=== PATIENT | female | born 1970 | race Caucasian/White ===

== ENCOUNTER 2016-06-12 00:12 | Inpatient (IN) | payer BC ==
[2016-06-12] VITALS (12 sets, daily range): BP systolic 102–135; BP diastolic 73–88; PULSE 58–88; TEMP 36.3–36.9; O2SAT 92–100; Ht 172.7 cm; Wt 66.4 kg
[~2016-06-12] VITALS: Ht 172.7 cm; Wt 66.4 kg
[~2016-06-12 00:12] MED LIST: CARI350T28 PO; RIZA10TA18 PO; [UNRECOGNIZED DRUG - CODE] PO
[2016-06-12] MEDS ORDERED: SODIUM CHLORIDE 0.9% 1000ML 1,000 ML IV STA (00:25)
[2016-06-12] MEDS ORDERED: SODIUM CHLORIDE 0.9% 1000ML 500 ML IV STA (00:25)
[2016-06-12] MEDS ORDERED: ONDANSETRON INJ 2 MG/ML 2 ML VIAL IV STA (00:25)
[2016-06-12] MEDS ORDERED: KETOROLAC TROMETHAMINE 30 MG/ML VIAL IV STA (00:25)
[2016-06-12] MEDS ORDERED: MoRPHine SULFATE 4 MG/ML 1 ML CARP\\VIAL IV PRN ×2 (00:30→03:45)
--- NOTE | 2016-06-12 00:34 | EMERGENCY ROOM VISIT NOTE ---
History Report prepared by Scribe: Kelly Alvarez Under the Supervision of: Dr. Tomas Cornell M.D. First contact with patient: 00:22 Chief Complaint: ABDOMINAL PAIN Stated Complaint: ABDOMINAL PAIN History of Present Illness The patient is a 45 year old female who presents to the Emergency Room with complaints of persistent abdominal pain that started about 5 hours prior to arrival. She rates her pain as a 7/10 and states the pain started approximately 15 minutes after she ate dinner this evening. She reports the pain feels similar to "gas pains" and she has experienced similar pain twice before in the past 2 weeks, both times having been shortly after eating. She tried taking Gas- X, Prilosec and Bentyl earlier this evening, but states they provided no relief. The patient denies any history of previous abdominal surgeries. She notes she has felt nauseous intermittently this evening and feels "hot and sweaty" here in the ED. She denies any recent vomiting or diarrhea. She admits to some increased urinary urgency in the past few weeks. She denies any recent fevers, sore throat or cough. Source of History: patient Onset: 5 hours [employer] SAL[employer] Position: abdomen Symptom Intensity: 7/10 Timing: other (persistent) Modifying Factors (Worsening): eating Modifying Factors (Relieving): other (Gas-X, Prilosec, Bentyl) Associated Symptoms: + nausea, + urinary symptoms, No cough, No diarrhea, No fevers, No sorethroat, No vomiting Review of Systems See HPI for pertinent positives & negatives. A total of 10 systems reviewed and were otherwise negative. Past Medical & Surgical Medical Problems: (1) GERD (gastroesophageal reflux disease) Social History Smoking Status: Never Smoker Smokeless Tobacco Use: No Alcohol Use: occasionally Drug Use: none Marital Status: Housing Status: lives with family Occupation Status: employed Current/Historical Medications No Active Prescriptions or Reported Meds Allergies Coded Allergies: Penicillins (Unverified Allergy, Mild, HIVES, 06/12/16) Tetracycline (Unverified Allergy, Mild, FLUID ON SPINAL COLUMN, 06/12/16) Physical Exam Vital Signs Date Time Temp Pulse Resp B/P Pulse Ox O2 Delivery O2 Flow Rate FiO2 06/12/16 03:30 78 20 126/73 98 Room Air 06/12/16 01:52 61 18 121/74 99 Room Air 06/12/16 00:19 36.7 86 18 122/87 99 Room Air Physical Exam GENERAL: Patient is in no acute distress. HEENT: No acute trauma, normocephalic atraumatic, mucous membranes moist, no nasal congestion, no scleral icterus. NECK: No stridor, no adenopathy, no meningismus, trachea is midline. LUNGS: Clear to auscultation bilaterally, no wheeze, no rhonchi, breath sounds equal. HEART: Without murmurs gallops or rubs, regular rate and rhythm. ABDOMEN: Soft, tender in right upper quadrant and epigastrium, bowel sounds positive, no hernias, no peritonitis. EXTREMITIES: No cyanosis or edema, full range of motion of all the joints without pain or difficulty, no signs for acute trauma. NEUROLOGIC: Oriented x 3, no acute motor or sensory deficits, no focal weakness. SKIN: No rash, no jaundice, no diaphoresis. Medical Decision & Procedures ER Provider Diagnostic Interpretation: This X-Ray was reviewed and interpreted by myself as we do not have a radiologist on staff overnight. CHEST X-RAY No pneumonia, free air or mediastinal widening seen on X-Ray. This Ultrasound was reviewed and interpreted by the radiologist and reviewed by myself. US RUQ: The liver measures upper limits of normal at 18.4 cm with slight increased echogenicity suggesting hepatic steatosis. Numerous gallstones with mild gallbladder wall thickening measuring up to 3.5 mm. Stones appear to be in the neck of the gallbladder. No pericholecystic fluid. Finding may represent early acute cholecystitis in the correct clinical setting. The common bile duct is prominent measuring up to 7 mm. Simple cyst noted within the right kidney measured 12 mm. Otherwise, the right kidney is unremarkable. Radiologist: Je Rodriguez MD Laboratory Results 06/12/16 00:35 Red Blood Count 4.59, Mean Corpuscular Volume 89.5, Mean Corpuscular Hemoglobin 31.8, Mean Corpuscular Hemoglobin Concent 35.5, Mean Platelet Volume 9.8, Neutrophils (%) (Auto) 71.1, Lymphocytes (%) (Auto) 18.9, Monocytes (%) (Auto) 8.4, Eosinophils (%) (Auto) 1.2, Basophils (%) (Auto) 0.3, Neutrophils # (Auto) 5.23, Lymphocytes # (Auto) 1.39, Monocytes # (Auto) 0.62, Eosinophils # (Auto) 0.09, Basophils # (Auto) 0.02 06/12/16 00:35 Test 06/12/16 00:35 06/12/16 01:50 White Blood Count 7.36 K/uL (4.8-10.8) Red Blood Count 4.59 M/uL (4.2-5.4) Hemoglobin 14.6 g/dL (12.0-16.0) Hematocrit 41.1 % (37-47) Mean Corpuscular Volume 89.5 fL (80-100) Mean Corpuscular Hemoglobin 31.8 pg (25-34) Mean Corpuscular Hemoglobin Concent 35.5 g/dl (32-36) Platelet Count 265 K/uL (130-400) Mean Platelet Volume 9.8 fL (7.4-10.4) Neutrophils (%) (Auto) 71.1 % Lymphocytes (%) (Auto) 18.9 % Monocytes (%) (Auto) 8.4 % Eosinophils (%) (Auto) 1.2 % Basophils (%) (Auto) 0.3 % Neutrophils # (Auto) 5.23 K/uL (1.4-6.5) Lymphocytes # (Auto) 1.39 K/uL (1.2-3.4) Monocytes # (Auto) 0.62 K/uL (0.11-0.59) Eosinophils # (Auto) 0.09 K/uL (0-0.5) Basophils # (Auto) 0.02 K/uL (0-0.2) RDW Standard Deviation 41.1 fL (36.4-46.3) RDW Coefficient of Variation 12.7 % (11.5-14.5) Immature Granulocyte % (Auto) 0.1 % Immature Granulocyte # (Auto) 0.01 K/uL (0.00-0.02) Anion Gap 8.0 mmol/L (3-11) Est Creatinine Clear Calc Drug Dose 76.2 ml/min Estimated GFR () 85.4 Estimated GFR (Non- 73.7 BUN/Creatinine Ratio 19.9 (10-20) Calcium Level 9.1 mg/dl (8.5-10.1) Total Bilirubin 0.6 mg/dl (0.2-1) Aspartate Amino Transf (AST/SGOT) 620 U/L (15-37) Alanine Aminotransferase (ALT/SGPT) 314 U/L (12-78) Alkaline Phosphatase 81 U/L (45-117) Troponin I < 0.015 ng/ml (0-0.045) Total Protein 7.1 gm/dl (6.4-8.2) Albumin 3.9 gm/dl (3.4-5.0) Globulin 3.2 gm/dl (2.5-4.0) Albumin/Globulin Ratio 1.2 (0.9-2) Lipase 284 U/L (73-393) Human Chorionic Gonadotropin, Qual NEG (NEG) Urine Color YELLOW Urine Appearance CLOUDY (CLEAR) Urine pH 8.0 (4.5-7.5) Urine Specific Lotus 1.011 (1.000-1.030) Urine Protein NEG (NEG) Urine Glucose (UA) NEG (NEG) Urine Ketones NEG (NEG) Urine Occult Blood NEG (NEG) Urine Nitrite NEG (NEG) Urine Bilirubin NEG (NEG) Urine Urobilinogen NEG (NEG) Urine Leukocyte Esterase NEG (NEG) Urine WBC (Auto) 1-5 /hpf (0-5) Urine RBC (Auto) 0-4 /hpf (0-4) Urine Hyaline Casts (Auto) 0 /lpf (0-5) Urine Epithelial Cells (Auto) 5-10 /lpf (0-5) Urine Bacteria (Auto) NEG (NEG) Laboratory results reviewed by me. Medications Administered Medications (Trade) Dose Ordered Sig/Dieudonne Route Start Time Stop Time Status Last Admin Dose Admin Sodium Chloride (Nss 1000ml) 500 ml @ 999 mls/hr Q31M STAT IV 06/12/16 00:25 06/12/16 00:55 DC 06/12/16 00:48 999 MLS/HR Ondansetron HCl 4 mg 4 mg NOW STAT IV 06/12/16 00:25 06/12/16 00:28 DC 06/12/16 00:49 4 MG Sodium Chloride (Nss 1000ml) 1,000 ml @ 200 mls/hr Q5H STAT IV 06/12/16 00:25 06/12/16 05:24 06/12/16 00:49 200 MLS/HR Morphine Sulfate (MoRPHine SULFATE INJ) 4 mg Q30M PRN IV 06/12/16 00:30 06/26/16 00:29 06/12/16 00:49 4 MG Ketorolac Tromethamine (Toradol Inj) 30 mg NOW STAT IV 06/12/16 00:25 06/12/16 00:28 DC 06/12/16 00:49 30 MG ECG Indication: abdominal pain Rate (beats per minute): 59 Rhythm: sinus bradycardia Findings: no acute ischemic change, no ectopy ED Course 0024: The patient was evaluated in room A9. A complete history and physical exam was performed. 0025: Toradol 30 mg IV, NSS 1000 ml @ 200 mls/hr IV, Zofran 4 mg IV, NSS 500 ml @ 999 mls/hr IV. 0030: Morphine Sulfate 4 mg IV. 0228: I discussed the patients case with BRYAN Peña General Surgery. The patient will be further evaluated. 0230: I reevaluated the patient. She is warp dyeing tender to palpate her abdomen but states she is feeling better. I discussed her results and my recommendation she be further evaluated by general surgery and she verbalized complete understanding and agreement. Medical Decision The differential diagnoses considered include acute biliary colic, acute cholecystitis, acute pancreatitis, acute appendicitis, bowel obstruction, intestinal colic, pneumonia, bowel rupture and UTI. There is no leukocytosis or concerning anemia. No significant electrolyte abnormality or kidney failure. There was no pancreatitis. AST and ALT were both somewhat elevated, bilirubin and alkaline phosphatase were normal. Urinalysis does not show infection. testing is negative. Chest film shows no free air or pneumonia, there was no mediastinal widening. EKG shows a sinus rhythm, no acute ischemia. Cardiac enzyme testing times one is not consistent with acute cardiac injury. Gallbladder ultrasound shows mild gallbladder wall thickening and gallstones consistent with potential early acute cholecystitis. The patient was given IV saline, IV Zofran, IV Toradol and IV morphine. She feels improved but is warp dyeing tender on exam in the right upper quadrant and epigastrium. I discussed the case with the on-call surgeon. The patient was seen by the surgeon here in the emergency room. Admission/observation was felt warranted. The patient appears to have an early acute cholecystitis. Consults Time Called: [phone] Consulting Physician: BRYAN Peña General Surgery Returned Call: [phone] I discussed the patients case with BRYAN Peña General Surgery. The patient will be further evaluated. Impression Primary Impression: Acute cholecystitis Scribe Attestation The scribe's documentation has been prepared under my direction and personally reviewed by me in its entirety. I confirm that the note above accurately reflects all work, treatment, procedures, and medical decision making performed by me. Departure Information Dispostion Being Evaluated By Surgeon Prescriptions No Active Prescriptions or Reported Meds Referrals Minna Soto D.O. (PCP) Patient Instructions [facility]
[2016-06-12 00:50] LABS: BASO % 0.3 %; BASO ABS # 0.02 K/uL (0-0.2); COMPLETE YES; EOS % 1.2 %; HEMATOCRIT 41.1 % (37-47); IG% 0.1 %; LYMPH % 18.9 %; LYMPH ABS # 1.39 K/uL (1.2-3.4); MEAN CELL VOLUME 89.5 fL (80-100); MEAN CORPUSCULAR HEMOGLOBIN 31.8 pg (25-34); MEAN CORPUSCULAR HGB CONC 35.5 g/dl (32-36); MEAN PLATELET VOLUME 9.8 fL (7.4-10.4); MONO % 8.4 %; NEUT % 71.1 %; PLATELET COUNT 265 K/uL (130-400); RED BLOOD COUNT 4.59 M/uL (4.2-5.4); WHITE BLOOD COUNT 7.36 K/uL (4.8-10.8)
[2016-06-12 01:07] LABS: ALT/SGPT 314 U/L (12-78); AST/SGOT 620 U/L (15-37); BLOOD UREA NITROGEN 19 mg/dl (7-18); BUN/CREATININE RATIO 19.9 (10-20); CALCIUM 9.1 mg/dl (8.5-10.1); CARBON DIOXIDE 31 mmol/L (21-32); CHLORIDE 105 mmol/L (98-107); CREATININE 0.93 mg/dl (0.60-1.20); GLUCOSE 91 mg/dl (70-99); POTASSIUM 3.6 mmol/L (3.5-5.1); SODIUM 144 mmol/L (136-145)
[2016-06-12 01:12] LABS: ALB/GLOB RATIO 1.2 (0.9-2); ALKALINE PHOSPHATASE 81 U/L (45-117)
[2016-06-12 01:25] LABS: PREG INTERNAL NEGATIVE QC NEG CLEAR BACKGROUND; PREG INTERNAL POSITIVE QC POS CONTROL LINE
[2016-06-12 02:25] LABS: URINE APPEARANCE CLOUDY (CLEAR); URINE BILIRUBIN NEG (NEG); URINE COLOR YELLOW; URINE NITRITE NEG (NEG); URINE SPECIFIC GRAVITY 1.011 (1.000-1.030); UROBILINOGEN NEG (NEG); ZZUR CULT IF INDIC CLEAN CATCH NO
[2016-06-12 02:34] LABS: MANUAL MICROSCOPIC REQUIRED? NO; REVIEW REQ? NO
[2016-06-12] MEDS ORDERED: OXYCODONE/ACETAMINOPHEN 5-325 TAB PO PRN (03:45)
[2016-06-12] MEDS ORDERED: CIPROFLOXACIN 400MG / 200ML D5W IV STA (04:24)
[2016-06-12] MEDS: LACTATED RINGER'S 1000ML 1,000 ML IV SCH ×2 (04:52→12:35)
--- NOTE | 2016-06-12 05:03 | HISTORY & PHYSICAL EXAMINATION ---
DATE OF ADMISSION: 06/12/2016 Seen in the Emergency Room 06/12/2016 at 3:15 the morning. SUMMARY: This is a 45-year-old female, who came into the Emergency Room complaining of epigastric pain, associated bloating, was evaluated and found to have cholelithiasis, probably some stones in the neck of gallbladder Her history is such that she had some chicken Ji last evening about 6:00 and developed this pain; although over the last 3 weeks she has had three similar attacks with some fatty food or other foods that stimulate her gallbladder. PAST MEDICAL HISTORY: Pretty much unremarkable. She just has typical migraines. The only other attempt at invasive procedure was a spinal tap at an early age. She took penicillin and in her youth and said broke out for some hives. Other than that, she enjoys very good health. She takes no other medicines except for occasional Tylenol. FAMILY HISTORY: Noncontributory. She is a nondrinker. PHYSICAL EXAMINATION: GENERAL: Revealed a very pleasant 45-year-old female, who is a nurse at [employer], in no acute distress at this time. She has been medicated. HEAD, EYES EARS NOSE AND THROAT: Normocephalic. PERRLA. The sclerae is nonicteric. There is no cervical lymphadenopathy. Oropharyngeal area is negative. HEART: Normal sinus rhythm. LUNGS: Clear. ABDOMEN: Soft, there is no tenderness. She has subjective complaints of pain in the epigastric area. On exam, she has got minimal guarding in the right upper quadrant. VITAL SIGNS: Her last vitals showed a temperature of 36.7, pulse 61, respirations 18, blood pressure 121/74 ,O2 sats 99 on room air. LABORATORIES: Her white count is 7.38. Chemistry showed an elevated AST and ALT though the bilirubin and alkaline phosphatase were negative. Her lipase is normal. The ultrasound imaging as stated; there is no pericholecystic fluid, but the wall was slightly at 3.5 cm. At this point, we shall admit her for acute cholecystitis plan for lap cholecystectomy and intraoperative cholangiogram. She denies any changes in her urine. I am not sure she may have passed the stone, although the liver enzymes bilirubin and alkaline phosphatase are normal the ast and alt are elevated. This was explained to the patient. We will probably get an intraoperative cholangiogram. We will plan to do surgery later today. Risk and complications of the surgery were explained including bleeding, infection, converting to an open procedure, injury to other organs and she would like to proceed accordingly. RAMU
[2016-06-12] MEDS ORDERED: IV FLUIDS COMPLETED PRN (05:45)
[2016-06-12] MEDS ORDERED: MIDAZOLAM HCL 1 MG/ML 2ML VIAL ONE ×2 (06:57→07:47)
[2016-06-12] MEDS ORDERED: DEXAMETHASONE SOD INJ 4 MG/ML VIAL ONE ×2 (06:57→07:47)
[2016-06-12] MEDS ORDERED: LIDOCAINE HCL 2% 2 ML VIAL (20MG/ML) ONE ×2 (06:57→07:47)
[2016-06-12] MEDS ORDERED: PHENYLEPHRINE HCL INJ 10 MG/ML VIAL ONE ×2 (06:57→07:47)
[2016-06-12] MEDS ORDERED: GLYCOPYRROLATE INJ 0.2 MG/ML VIAL ONE ×2 (06:57→07:47)
[2016-06-12] MEDS ORDERED: NEOSTIGMINE METHYLSULFATE 5 MG/5 ML SYR ONE ×2 (06:57→07:47)
[2016-06-12] MEDS ORDERED: EpHEDrine SULFATE INJ 50 MG/ML AMP ONE ×2 (06:57→07:47)
[2016-06-12] MEDS ORDERED: ONDANSETRON INJ 2 MG/ML 2 ML VIAL ONE ×2 (06:57→07:47)
[2016-06-12] MEDS ORDERED: FENTANYL CITRATE INJ 50 MCG/1 ML 2 ML VIAL ONE ×3 (06:57→07:49)
[2016-06-12] MEDS ORDERED: ROCURONIUM BROMIDE 10 MG/ML 5 ML VIAL ONE ×2 (06:57→07:47)
[2016-06-12] MEDS ORDERED: PROPOFOL IV EMULSION 10 MG/ML 20 ML VIAL IV ONE ×2 (06:57→07:47)
[2016-06-12] MEDS ORDERED: SUCCINYLCHOLINE CHLORIDE 20 MG/ML 10 ML VIAL IV ONE ×2 (06:57→07:47)
[2016-06-12] MEDS ORDERED: BUPIVACAINE 0.5 % 5 MG/1 ML MPF 30ML VIAL ONE (07:12)
[2016-06-12] MEDS ORDERED: LIDOCAINE HCL 1% 20 ML VIAL ONE (07:13)
[2016-06-12] MEDS ORDERED: CONRAY 30% 150ML BOTTLE ONE (07:13)
--- NOTE | 2016-06-12 07:17 | DIAGNOSTIC IMAGING REPORT ---
CHEST ONE VIEW PORTABLE CLINICAL HISTORY: ABDOMINAL PAIN/GI pain. Nausea. COMPARISON STUDY: No previous studies for comparison. FINDINGS: The bones soft tissues and hemidiaphragms are normal. The cardiomediastinal silhouette is normal. The lungs are clear. The pulmonary vasculature is normal. IMPRESSION: Negative chest. Electronically signed by: Jake Llanes M.D. 06/12/2016 7:16 AM Dictated Date/Time: 06/12/2016 7:15 AM
[2016-06-12] MEDS ORDERED: LIDOCAINE/EPINEPHRINE 1% 20 ML VIAL ONE (07:18)
--- NOTE | 2016-06-12 07:42 | DIAGNOSTIC IMAGING REPORT ---
ABDOMINAL ULTRASOUND, RIGHT UPPER QUADRANT HISTORY: Epigastric pain.. COMPARISON: None. FINDINGS: Pancreas: The pancreas demonstrates a normal echotexture. Liver: Mild central intrahepatic bile duct dilatation. Gallbladder: Multiple stones within the gallbladder. Focal area of mild wall thickening measuring 3.5 mm. There are stones located within the neck of the gallbladder. CBD: 7 mm. Right kidney: No hydronephrosis. A 1.2 cm cyst. IMPRESSION: 1. Multiple stones within the gallbladder with focal area of mild wall thickening. There are stones within the neck of the gallbladder. Clinical correlation is recommended to assess for acute cholecystitis. 2. Mild common bile duct dilatation and mild central intrahepatic bile duct dilatation. Electronically signed by: Neo Shabazz M.D. 06/12/2016 7:41 AM Dictated Date/Time: 06/12/2016 7:38 AM
--- NOTE | 2016-06-12 08:14 | [facility] Post Operative Brief Note ---
Immediate Operative Summary Operative Date Jun 12, 2016. Pre-Operative Diagnosis Acute cholecystitis Post-Operative Diagnosis accc Procedure(s) Performed Laparoscopic cholecystectomy with choliangiogram Surgeon Dr. Mulligan Sander Machine Surgeon(s) Sonny Browne PA-C Estimated Blood Loss 5 cc Findings acute and chronic cc Specimens A: gallbladder
[2016-06-12] MEDS ORDERED: ONDANSETRON INJ 2 MG/ML 2 ML VIAL IV PRN (08:15)
[2016-06-12] MEDS ORDERED: NALOXONE HCL 0.4 MG/1 ML VIAL/CARP IV PRN (08:15)
[2016-06-12] MEDS ORDERED: FLUMAZENIL 0.1 MG/1 ML 10 ML VIAL IV PRN (08:15)
[2016-06-12] MEDS ORDERED: ATROPINE SULFATE 0.1 MG/ML 5ML SYR IV PRN (08:15)
[2016-06-12] MEDS ORDERED: PROMETHAZINE HCL INJ 12.5 MG in SODIUM CHLORIDE 0.9% 50ML 50 ML IV PRN (08:15)
[2016-06-12] MEDS ORDERED: EpHEDrine SULFATE INJ 50 MG/ML AMP IV PRN (08:15)
[2016-06-12] MEDS ORDERED: LABETALOL HCL IV 5 MG/ML 20ML IV PRN (08:15)
[2016-06-12] MEDS: HYDROmorphone INJ 1 MG/ML SYR IV PRN ×5 (08:40→09:00)
--- NOTE | 2016-06-12 08:46 | OPERATIVE REPORT ---
DATE OF OPERATION: 06/12/2016 SURGEON: Dr. Mulligan. OPTOMETRY TEACHER: Jacek Mcnair PA-C. PREOPERATIVE DIAGNOSES: Acute on chronic cholecystitis, cholelithiasis. POSTOPERATIVE DIAGNOSES: Same. PROCEDURE: Laparoscopic cholecystectomy, intraoperative cholangiogram. SUMMARY: After induction of general endotracheal anesthesia, the patient's abdomen was prepped with Betadine solution and properly draped. We made a small incision supraumbilically, sufficient enough to place a Veress needle, followed by CO2, followed by a 5 mm trocar. Point of entry inspected and no injury identified. Under direct visualization, a 5 mm epigastric port was placed with preemptive local analgesia with 1% Xylocaine without epinephrine and 2 subcostal ports similarly with preemptive analgesia. Gallbladder visualized, it was tense. We aspirated and got some thick yellow bowel. We grabbed it, elevated it, and dissected out the neck. We were able to identify the cystic duct which was slightly bigger than normal. We clipped it proximally. A small opening in the cystic duct was made and we could see a very tiny stone coming out of the duct. At this point, we placed a #4 urethral catheter transversing the abdominal wall and a 14 Angiocath in the cystic duct. Serial x-rays were taken, showed free flow into the duodenum, no real obstruction. We visualized pretty much the whole common bile duct, could not get enough dye into the left hepatic radicle. At this point, we removed the catheter and doubly clipped the cystic duct, identified the cystic artery, doubly clipped and divided. There was moderate amount of edema in the wall of the gallbladder which we started dissection posteriorly using suction tip, leaving as much of the posterior peritoneum intact. A few smaller arterial branches coming off were cauterized. We did not enter the liver. The gallbladder was then removed completely from the liver bed. Prior to freeing it up and placing it back, we irrigated the subhepatic area and down to the emmanuel hepatis area. There was no bleeding identified. The gallbladder was removed from the liver, placed in an Endopouch, and taken out intact through the epigastric port. We had to enlarge the epigastric port sufficiently since the patient was completely filled with stones in the gallbladder. At this point, the subhepatic and suprahepatic area was then checked for hemostasis and appeared satisfactory. We placed the camera in the subcostal port to visualize the umbilical opening. There were no adhesions appreciated there. Individual trocars were checked for bleeding, there was no bleeding, and they were removed. Wounds were closed by placing 0 [id number] suture in the epigastric port site since we enlarged the incision, this was anterior rectus sheath mostly that we oversewed. The other ones with 4-0 Monocryl. Steri-Strips applied. The procedure was tolerated well by the patient. Estimated blood loss approximately 5 mL. The patient was taken to recovery in good condition. I attest to the content of the Intraoperative Record and any orders documented therein. Any exceptions are noted below. MTDD
--- NOTE | 2016-06-12 08:51 | DIAGNOSTIC IMAGING REPORT ---
INTRAOPERATIVE CHOLANGIOGRAM HISTORY: Post cholecystectomy. FLUOROSCOPY TIME: 25 seconds. FINDINGS: Fluoroscopy was provided for an intraoperative cholangiogram status post cholecystectomy. Contrast was injected through the cystic duct remnant. The common bile duct is normal in course and caliber. There are no filling defects seen within the common bile duct to suggest a retained stone. Contrast extends into the small bowel. There is no intrahepatic bile duct dilatation. IMPRESSION: Fluoroscopy provided for an intraoperative cholangiogram status post cholecystectomy. No filling defects within the common bile duct. Normal study Electronically signed by: Jake Llanes M.D. 06/12/2016 8:50 AM Dictated Date/Time: 06/12/2016 8:49 AM
[2016-06-12] MEDS ORDERED: OXYC-57 PO (09:17)
--- NOTE | 2016-06-12 09:19 | Discharge Instructions ---
Discharge Instructions Date of Service Jun 12, 2016. Admission Reason for Admission: Abdominal Pain Discharge Discharge Diagnosis / Problem: laparoscopic cholecystectomy Discharge Goals Goal(s): Decrease discomfort Activity Recommendations Activity Limitations: as noted below Lifting Limitations: no more than 10 pounds Shower/Bathe: tomorrow Driving or Machine Use: resume 3 days after discharge (if not taking Percocet) . Instructions / Follow-Up Instructions / Follow-Up Dr. Mulligan's office in 1 week, call [phone] to schedule, [address] Current Hospital Diet Patient's current hospital diet: Clear Liquid Diet Discharge Diet Recommended Diet: Regular Diet Procedures Procedures Performed: Laparoscopic cholecystectomy with choliangiogram Pending Studies Studies pending at discharge: no Medical Emergencies . Who to Call and When: Medical Emergencies: If at any time you feel your situation is an emergency, please call 911 immediately. . Non-Emergent Contact Non-Emergency issues call your: Surgeon Call Non-Emergent contact if: you have a fever, temperature is above 101.5, your pain is not controlled, wound has increased redness . "Provider Documentation" section prepared by Jacek Mcnair. VTE Core Measure Inpt VTE Proph given/why not?: SCD's
--- NOTE | 2016-06-12 09:25 | Anesthesiology Progress Note ---
Anesthesia Post Op Note Date & Time Jun 12, 2016 at 09:26 Vital Signs Pain Intensity: 3 Vital Signs Past 12 Hours Date Time Temp Pulse Resp B/P Pulse Ox O2 Delivery O2 Flow Rate FiO2 06/12/16 09:20 54 14 153/86 100 Nasal Cannula 3 06/12/16 09:10 55 14 148/85 100 Nasal Cannula 3 06/12/16 09:00 56 14 147/85 100 Nasal Cannula 3 06/12/16 08:50 55 16 152/92 100 Nasal Cannula 3 06/12/16 08:40 56 16 135/87 100 Mask 10 06/12/16 08:32 36.8 62 16 130/89 100 Mask 10 06/12/16 06:28 36.5 63 16 125/80 100 Room Air 06/12/16 04:30 Room Air 06/12/16 04:30 36.8 64 16 135/84 97 Room Air 06/12/16 04:27 70 20 128/80 98 06/12/16 04:20 36.8 64 16 135/84 97 Room Air 06/12/16 03:30 78 20 126/73 98 Room Air 06/12/16 01:52 61 18 121/74 99 Room Air 06/12/16 00:19 36.7 86 18 122/87 99 Room Air Notes Mental Status: alert / awake / arousable, participated in evaluation Pt Amnestic to Procedure: Yes Nausea / Vomiting: adequately controlled Pain: adequately controlled Airway Patency, RR, SpO2: stable & adequate BP & HR: stable & adequate Hydration State: stable & adequate Anesthetic Complications: no major complications apparent
[2016-06-12] MEDS: MoRPHine SULFATE 4 MG/ML 1 ML CARP\\VIAL IV PRN ×2 (09:55→13:34)
[2016-06-12] MEDS ORDERED: CIPR1TAB10 PO (14:09)
[2016-06-12] MEDS ORDERED: HYDR-3419 PO (14:55)
[2016-06-12] MEDS ORDERED: HYDROCODONE/ACETAMOPHEN 5/325MG TAB PO PRN (15:00)
[2016-06-12] MEDS ORDERED: CIPROFLOXACIN / D5W 400 MG in PREMIXED IN D5W 200 ML IV SCH (17:00)
--- NOTE | 2016-06-13 10:46 | DISCHARGE SUMMARY ---
PRIMARY DISCHARGE DIAGNOSES: Cholelithiasis with acute and chronic cholecystitis. SECONDARY DISCHARGE DIAGNOSES: GERD. PROCEDURE PERFORMED: Laparoscopic cholecystectomy with intraoperative cholangiogram. HOSPITAL COURSE: The patient is a 45-year-old female who presented to the Emergency Department at night complaining of 5 hours of abdominal pain that began shortly after eating dinner. Her white count was normal, but ultrasound showed cholelithiasis with some gallbladder wall thickening and stones in the neck of the gallbladder. She was admitted to the surgery service overnight, started on IV Cipro and cholecystectomy planned for the morning. She was taken to the operating room as planned for laparoscopic cholecystectomy with cholangiogram which was negative. She was returned to the surgical floor. During the day she was able to increase diet and activity. By the evening she was tolerating regular diet and oral analgesics. She was stable for discharge. DISCHARGE INSTRUCTIONS: Discharge home. Follow up with Dr. Mulligan in 1 week. DISCHARGE MEDICATIONS: Cipro 500 mg p.o. b.i.d. x5 and Vicodin 1-2 tablets every 4 hours as needed.
== END 2016-06-12 18:38 | disposition home or self-care (01) | DRG 419 ==
LOC: ENRESERVTM → ENRESERVDT → C.EDB 00:13 → C.MSW 03:41 → EDBEDREQ 03:42
PROVIDERS: ADMIT Surgery; ATTEND Surgery
PROC: BF10YZZ Fluoroscopy of Bile Ducts using Other Contrast (ICD-10-PCS; principal; 2016-06-12 07:30)
PROC: 0FT44ZZ Resection of Gallbladder, Percutaneous Endoscopic Approach (ICD-10-PCS; principal; 2016-06-12 07:30)
DX: K80.12 Calculus of gallbladder with acute and chronic cholecystitis without obstruction (principal); K21.9 Gastro-esophageal reflux disease without esophagitis; Z88.0 Allergy status to penicillin

== ENCOUNTER → 2016-06-29 | Outpatient (CLI) | payer BC ==
[~2016-06-29] MED LIST changes: -CARI350T28 PO; +CIPR1TAB10 PO; +HYDR-3419 PO; -RIZA10TA18 PO; -[UNRECOGNIZED DRUG - CODE] PO
== END | disposition home or self-care (01) ==
LOC: C.LAB1850 11:33
PROVIDERS: ATTEND Physician Assistant
DX: K80.20 Calculus of gallbladder without cholecystitis without obstruction (principal)

== ENCOUNTER → 2016-07-17 | Outpatient (CLI) | payer BC ==
--- NOTE | 2016-07-17 12:54 | DIAGNOSTIC IMAGING REPORT ---
CERVICAL SPINE 5 VIEWS HISTORY: CERVICALGIA COMPARISON: None. FINDINGS: The cervical spine is visualized from C1 through the superior endplate of T1. There is no fracture. No subluxation. Mild disc space narrowing and tiny endplate osteophytes at C5-C6. Mild bilateral neural foraminal narrowing at C5-C6 due to the uncovertebral and facet hypertrophy. Prevertebral soft tissues and the atlantodens interval are intact. IMPRESSION: No fracture or subluxation within the cervical spine. Mild degenerative disc disease at C5-C6. Electronically signed by: Noe Shabazz M.D. 07/17/2016 12:53 PM Dictated Date/Time: 07/17/2016 12:51 PM
== END | disposition home or self-care (01) ==
LOC: C.RADBC 12:09
PROVIDERS: ATTEND Nurse Practitioner Family
DX: M54.2 Cervicalgia (principal)

== ENCOUNTER → 2016-09-22 | Outpatient (CLI) | payer BC ==
[2016-09-22 14:26] LABS: BASO % 0.4 %; BASO ABS # 0.02 K/uL (0-0.2); COMPLETE YES; HEMATOCRIT 42.3 % (37-47); IG% 0.2 %; LYMPH % 27.1 %; LYMPH ABS # 1.35 K/uL (1.2-3.4); MEAN CORPUSCULAR HEMOGLOBIN 30.1 pg (25-34); MEAN CORPUSCULAR HGB CONC 32.4 g/dl (32-36); MEAN PLATELET VOLUME 10.6 fL (7.4-10.4); MONO % 9.2 %; NEUT % 60.1 %; PLATELET COUNT 306 K/uL (130-400); RED BLOOD COUNT 4.55 M/uL (4.2-5.4); WHITE BLOOD COUNT 4.99 K/uL (4.8-10.8)
== END | disposition home or self-care (01) ==
LOC: C.LABBC 09:41
PROVIDERS: ATTEND Nurse Practitioner Family
DX: N93.8 Other specified abnormal uterine and vaginal bleeding (principal)

== ENCOUNTER → 2016-09-29 | Outpatient (CLI) | payer BC ==
--- NOTE | 2016-09-29 08:33 | DIAGNOSTIC IMAGING REPORT ---
PELVIC COMPLETE NON OB CLINICAL HISTORY: 45 years-old Female presenting with DUB. TECHNIQUE: Real-time grayscale and color and spectral Doppler ultrasound imaging of the pelvis was performed first using a transabdominal probe and subsequently transvaginal for better characterization. COMPARISON: Ultrasound from 2017. FINDINGS: Uterus: Subcentimeter anechoic cystic structure with posterior acoustic shadowing noted at the posterior wall. Additional subendometrial cystic change noted elsewhere. Anteverted retroflexed. The uterus measures 8.1 x 4.6 x 4.9 cm. Endometrial stripe measures 11 mm in thickness. Endometrium normal-appearing for a premenopausal female. Trace free fluid in the cervix. Right adnexa: Right ovary contains a dominant follicle. Right ovary measures 2.2 x 2.4 x 1.9 cm. Normal color Doppler flow and arterial and venous waveforms within the ovarian parenchyma. Adnexa otherwise normal. Left adnexa: Left ovary contains a dominant follicle. Left ovary measures 2.5 x 2.4 x 3.2 cm cm. Normal color Doppler flow and arterial and venous waveforms within the ovarian parenchyma. Adnexa otherwise demonstrates trace free fluid. Other: Small amount of free fluid in the pelvis, likely physiologic. IMPRESSION: 1. Some endometrial cystic change in the uterus is highly suggestive of adenomyosis. If there is further need for confirmation, MRI of the pelvis could be obtained for focal examination of the endometrium. 2. Normal ovaries. Electronically signed by: Sung Layton M.D. 09/29/2016 8:31 AM Dictated Date/Time: 09/29/2016 8:26 AM
== END | disposition home or self-care (01) ==
LOC: C.ULTRBC 07:51
PROVIDERS: ATTEND Nurse Practitioner Family
DX: N93.8 Other specified abnormal uterine and vaginal bleeding (principal)

== ENCOUNTER → 2016-11-02 | Outpatient (CLI) | payer BC | END | disposition home or self-care (01) | LOC: C.PATHSPEC 14:06 | PROVIDERS: ATTEND Obstetrics & Gynecology | DX: N97.0 Female infertility associated with anovulation (principal) ==